=== PATIENT | female | born 1985 | race American Indian/Alaskan Native ===

== ENCOUNTER 2021-07-22 15:46 | Emergency (ER) | payer SELFPAY ==
[2021-07-22 15:52] VITALS: BP 138/82
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
[2021-07-22] MEDS ORDERED: CYCLOBENZAPRINE 10 MG TAB PO ONE (18:03)
[2021-07-22] MEDS ORDERED: IBUPROFEN 600 MG TAB PO ONE (18:03)
--- NOTE | 2021-07-22 18:58 | XRay Report ---
Cervical spine 4 views INDICATION: Neck pain following injury IMPRESSION: No fracture or subluxation is identified. Signer Name: Benedicto Quiroz MD Signed: 07/22/2021 6:53 PM Workstation Name: [id number]
== END 2021-07-22 19:20 | disposition home or self-care (01) ==
LOC: ED 15:46
DX: S16.1XXA Strain of muscle, fascia and tendon at neck level, initial encounter (principal); V49.59XA Passenger injured in collision with other motor vehicles in traffic accident, initial encounter; Y93.89 Activity, other specified; Y92.89 Other specified places as the place of occurrence of the external cause; Y99.8 Other external cause status
CPT/HCPCS: 72040; 99283